=== PATIENT | male | born 1990 | race Two or more races ===

== ENCOUNTER 2020-12-07 07:35 | Emergency (ER) | payer SELFPAY ==
[~2020-12-07] VITALS: Ht 177.8 cm; Wt 131.5 kg
[2020-12-07 07:43] VITALS: BP 151/77
[2020-12-07] MEDS ORDERED: KETOROLAC TROMETH 60MG/2ML VIAL IM ONE (09:15)
== END 2020-12-07 09:06 | disposition home or self-care (01) ==
LOC: ER 07:35
DX: S29.012A Strain of muscle and tendon of back wall of thorax, initial encounter (principal); M54.2 Cervicalgia; V49.49XA Driver injured in collision with other motor vehicles in traffic accident, initial encounter; Y93.89 Activity, other specified; Y92.410 Unspecified street and highway as the place of occurrence of the external cause; Y99.8 Other external cause status
CPT/HCPCS: 72125; 72128; 73030; 96372; 99285; J1885